=== PATIENT | male | born 1995 | race Caucasian/White ===

== ENCOUNTER 2021-05-28 11:46 | Inpatient (IN) | payer BC, SELFPAY ==
[2021-05-28 12:00] VITALS: BMI 25.7
[2021-05-28 12:12] VITALS: BP 127/74; PULSE 113; TEMP 36.4; O2SAT 97
[2021-05-28 14:00] VITALS: BP 113/58; PULSE 55; RESP 20; TEMP 36.6; O2SAT 96
[2021-05-28] MEDS: hyDROXYzine 25 mg Capsule 50 MG PO (16:54)
--- NOTE | 2021-05-28 16:56 | PC.NURSE ---
PATIENT APPROACHED THE NURSES STATION C/O ANXIETY. VISTARIL 50MG PO ADMINISTERED. WILL MONITOR FOR DRUG EFFECTIVENESS
[2021-05-28] MEDS: OLANZapine 5 mg ODT PO (19:24)
--- NOTE | 2021-05-28 19:54 | PC.NURSE ---
Zyprexa 5 mg sl given for increased agitation and anxiety.
[2021-05-28 22:00] VITALS: BP 113/58; PULSE 55; RESP 20; TEMP 36.6; O2SAT 96
[2021-05-28 22:27] VITALS: BP 135/85; PULSE 97; RESP 17; O2SAT 96
[2021-05-29 06:00] VITALS: RESP 17
[2021-05-29] MEDS: OLANZapine 5 mg ODT PO (11:37)
[2021-05-29] MEDS: hyDROXYzine 25 mg Capsule 50 MG PO ×2 (11:37→20:20)
--- NOTE | 2021-05-29 11:38 | PC.NURSE ---
prn Administered Zydis 5mg, vistaril 5mg, pt c/o anxiety and racing thoughts. Will continue to monitor pt.
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
[2021-05-29] MEDS: nicotine 2 mg Gum BUCCAL ×2 (13:35→18:53)
[2021-05-29] MEDS: atomoxetine 40 mg Capsule PO (13:41)
[2021-05-29] MEDS: fluoxetine 20 mg Capsule PO (13:42)
[2021-05-29 14:00] VITALS: BP 126/78; PULSE 88; RESP 16; TEMP 36.5; O2SAT 99
[2021-05-29 20:16] VITALS: BP 112/68; PULSE 103; RESP 18; O2SAT 98
[2021-05-29] MEDS: trazodone 50 mg Tablet PO (20:20)
--- NOTE | 2021-05-29 20:20 | PC.NURSE ---
Vistaril 50 mg Po given for anxiety and Trazadone 50 mg po given for sleep aide.
[2021-05-30 06:00] VITALS: RESP 18
[2021-05-30] MEDS: atomoxetine 40 mg Capsule PO (08:32)
[2021-05-30] MEDS: fluoxetine 20 mg Capsule PO (08:33)
[2021-05-30] MEDS: nicotine 2 mg Gum BUCCAL ×6 (11:44→23:39)
[2021-05-30 14:00] VITALS: BP 129/76; PULSE 84; RESP 18; TEMP 36.4; O2SAT 98
--- NOTE | 2021-05-30 18:35 | P.NPUPN_ITS ---
Subjective NPU Subjective: Interval history: Patient resents today reporting easily multiple calls to different programs in hopes of finding a place for his recovery. Plan is to make also we can only have an opportunity for placement soon. Endorses being very focused on moving forward with his recovery and feels that going to a program is his best option. Mental Status Exam MSE Comments: This is a well-nourished, well-developed, white male, with tattoos on his exposed skin, in hospital scrubs, with adequate grooming and eye contact. No abnormal movements, except for mild psychomotor retardation. Cooperative with exam in mild distress. Speech was normal rate and volume. Mood described as a little hopeful; affect congruent. Thought process, organized. Thought content: patient denied any suicidal or homicidal ideation, there were no delusions reported or noted, patient denied any auditory or visual hallucinations. Attention, concentration, and memory appear intact but none were formally tested. He is alert and oriented times three. Insight and judgment are fair. Impulse control is limited. Vitals/I&O/Wt Last Vital Signs Temp 98.3 F 05/30/21 20:29 Pulse 92 05/30/21 20:29 Resp 18 05/30/21 20:29 BP 132/80 05/30/21 20:29 Pulse Ox 94 05/30/21 20:29 A&P Additional A&P Information (1) ADHD: (2) Major depressive disorder, recurrent: (3) Methamphetamine dependence: Additional A&P Information This is a 25-year-old white male, with bereavement, attention deficit hyperactivity disorder, combined type, major depressive disorder recurrent, moderate, rule out post-traumatic stress disorder, methamphetamine use disorder, and cannabis use disorder, who presents reporting an openness to engage in treatment. 1. Continue current medication. 2. Started Prozac 20 mg po qam. 3. Started Strattera 40 mg po qam, with meals, but may take the first dose today. 4. Encourage individual, group, and milieu therapy. 5. Continue q-15 minute checks for safety. 6. Recommend sober living treatment at the highest level of care to which the patient is willing to commit. Involuntary Hold Information 96 Hour Hold: 96 Hour Involuntary Admission: No Attestations NPU Medical Necessity Statement*: Inpatient hospitalization is medically necessary and the clinically appropriate intervention, at this time. We will monitor medications and make changes as indicated. Likely length of stay is 2-4 days. Coding Level of Care Code Acute Core Measures Abstractor for Jorge Yarbrough
--- NOTE | 2021-05-30 20:18 | PC.NURSE ---
Patient request for nicotine gum.Given.
[2021-05-30 20:29] VITALS: BP 132/80; PULSE 92; RESP 18; TEMP 36.8; O2SAT 94
[2021-05-30] MEDS: trazodone 50 mg Tablet PO (21:34)
[2021-05-30] MEDS: hyDROXYzine 25 mg Capsule 50 MG PO (21:34)
--- NOTE | 2021-05-30 21:55 | PC.NURSE ---
Patient c/o insomnia. Give hydroxizine 50 mg po and and trazadone 50 mg po.
--- NOTE | 2021-05-30 23:40 | PC.NURSE ---
Patient request for nicotine gum.Given.
[2021-05-31 03:26] VITALS: BP 130/80; PULSE 88; RESP 18; TEMP 36.8; O2SAT 96
[2021-05-31 06:00] VITALS: BP 108/56; PULSE 60; RESP 16; TEMP 36; O2SAT 96
[2021-05-31] MEDS: atomoxetine 40 mg Capsule PO (08:58)
[2021-05-31] MEDS: fluoxetine 20 mg Capsule PO (08:58)
[2021-05-31] MEDS: nicotine 2 mg Gum BUCCAL ×7 (08:58→20:08)
[2021-05-31 14:00] VITALS: BP 123/73; PULSE 74; RESP 16; TEMP 36.6; O2SAT 98
[2021-05-31] MEDS: OLANZapine 5 mg ODT PO (16:50)
[2021-05-31] MEDS: hyDROXYzine 25 mg Capsule 50 MG PO ×2 (17:27→20:57)
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
[2021-05-31] MEDS: trazodone 50 mg Tablet PO (20:57)
[2021-05-31 21:25] VITALS: BP 107/61; PULSE 95; RESP 16; TEMP 36.7; O2SAT 98
[2021-06-01 06:00] VITALS: BP 110/63; PULSE 58; RESP 16; TEMP 36.4; O2SAT 98
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
[2021-06-01] MEDS: fluoxetine 20 mg Capsule PO (08:15)
[2021-06-01] MEDS: atomoxetine 40 mg Capsule PO (08:15)
[2021-06-01 11:11] VITALS: BP 110/63; PULSE 58; RESP 16; TEMP 36.4; O2SAT 98
== END 2021-06-01 11:46 | disposition home or self-care (01) | DRG 885 ==
PROVIDERS: Admitting Provider Psychiatry & Neurology Psychiatry; Visit Provider Psychiatry & Neurology Psychiatry
DX: F33.9 Major depressive disorder, recurrent, unspecified (principal); F15.20 Other stimulant dependence, uncomplicated; R45.851 Suicidal ideations; F17.210 Nicotine dependence, cigarettes, uncomplicated; Z91.51 Personal history of suicidal behavior; Z59.00 Homelessness unspecified; F90.2 Attention-deficit hyperactivity disorder, combined type; Z62.810 Personal history of physical and sexual abuse in childhood; F12.10 Cannabis abuse, uncomplicated; Z63.4 Disappearance and death of family member
CPT/HCPCS: 97150; 97165